=== PATIENT | male | born 1960 | race Caucasian/White ===

== ENCOUNTER → 2021-01-11 | Outpatient (CLI) | payer OTHER ==
[~2021-01-11] MED LIST: CARVEDILOL12.5 MG PO; CLONAZEPAM1 MG PO; CYANOCOBAL1000 MCG/1 INJ; CYCLOBENZAPRINE10 MG PO; CYMBALTA 30 MG30 MG PO; ENDOCET 7.5-321 EACH PO; FLECAINIDE ACET50 MG PO; HYDROCHLOROTHIA25 MG PO; MELOXICAM15 MG PO; NORVASC5 MG PO; OMEPRAZOLE20 M1 PO; ST. JOSEPH ASPI81 M1 PO; TRICOR 145 MG145 MG PO
[2021-01-11 10:28] LABS: HEMOGLOBIN 17.9 gm/dl (14.0-17.5); RED BLOOD COUNT 5.36 M/UL (4.20-5.50); WHITE BLOOD COUNT 8.9 K/UL (4.5-11.0)
[2021-01-11 10:45] LABS: BUN/CREATININE RATIO 21 (0-10)
== END ==
LOC: OPSV2 09:27 → EDSTATUS 09:30
PROVIDERS: Orthopaedic Surgery
DX: Z01.818 Encounter for other preprocedural examination (principal); M75.101 Unspecified rotator cuff tear or rupture of right shoulder, not specified as traumatic; R94.31 Abnormal electrocardiogram [ECG] [EKG]
CPT/HCPCS: 36415; 80048; 83036; 85027; 87081; 93005

== ENCOUNTER 2021-01-14 06:42 | Day surgery (SDC) | payer OTHER ==
[~2021-01-14] VITALS: Ht 172.7 cm; Wt 103.0 kg
[2021-01-14] MEDS ORDERED: CYCLOBENZAPRINE10 MG PO (07:39)
[2021-01-14] MEDS ORDERED: OMEPRAZOLE20 M1 PO (07:39)
[2021-01-14] MEDS ORDERED: CYMBALTA 30 MG30 MG PO (07:39)
[2021-01-14] MEDS ORDERED: MELOXICAM15 MG PO (07:39)
[2021-01-14] MEDS ORDERED: CLONAZEPAM1 MG PO (07:40)
[2021-01-14] MEDS ORDERED: CARVEDILOL12.5 MG PO (07:40)
[2021-01-14] MEDS ORDERED: TRICOR 145 MG145 MG PO (07:40)
[2021-01-14] MEDS ORDERED: CYANOCOBAL1000 MCG/1 INJ (07:41)
[2021-01-14] MEDS ORDERED: ST. JOSEPH ASPI81 M1 PO (07:41)
[2021-01-14] MEDS ORDERED: FLECAINIDE ACET50 MG PO (07:42)
[2021-01-14] MEDS ORDERED: HYDROCHLOROTHIA25 MG PO (07:42)
[2021-01-14] MEDS ORDERED: NORVASC5 MG PO (07:42)
[2021-01-14] MEDS ORDERED: ENDOCET 7.5-321 EACH PO (08:39)
[2021-01-15 04:22] LABS: BUN/CREATININE RATIO 24 (0-10)
[2021-01-15 04:24] LABS: RED BLOOD COUNT 4.55 M/UL (4.20-5.50); WHITE BLOOD COUNT 10.7 K/UL (4.5-11.0)
[2021-01-15 04:33] LABS: HEMOGLOBIN 14.6 gm/dl (14.0-17.5)
== END 2021-01-15 18:50 | disposition home or self-care (01) ==
LOC: OR 06:42 → M/S 13:59 → OR 01-15 18:50
PROVIDERS: Orthopaedic Surgery
DX: M75.101 Unspecified rotator cuff tear or rupture of right shoulder, not specified as traumatic (principal); E11.9 Type 2 diabetes mellitus without complications; I11.0 Hypertensive heart disease with heart failure; N20.0 Calculus of kidney; I50.9 Heart failure, unspecified; E78.5 Hyperlipidemia, unspecified; I48.91 Unspecified atrial fibrillation; G47.30 Sleep apnea, unspecified; F17.219 Nicotine dependence, cigarettes, with unspecified nicotine-induced disorders; J18.9 Pneumonia, unspecified organism; K21.9 Gastro-esophageal reflux disease without esophagitis; F41.0 Panic disorder [episodic paroxysmal anxiety]; M19.90 Unspecified osteoarthritis, unspecified site; E66.9 Obesity, unspecified; Z88.8 Allergy status to other drugs, medicaments and biological substances; Z79.899 Other long term (current) drug therapy; Z91.012 Allergy to eggs; Z20.822 Contact with and (suspected) exposure to COVID-19; Z68.34 Body mass index [BMI] 34.0-34.9, adult
CPT/HCPCS: 36415; 73020; 80048; 82962; 85027; 97116-GP-CQ; 97162; 97166; 97530-GP-CQ; 97535; C1713; C1776; J0592; J0690; J1100; J2001; J2250; J2270; J2405; J2704; J2710; J2795; J3010; J3370; J7120